=== PATIENT | female | born 1970 | race Caucasian/White ===

== ENCOUNTER 2017-02-03 18:54 | Inpatient (IN) | payer BC ==
[~2017-02-03] VITALS: Ht 157.5 cm; Wt 65.9 kg
--- NOTE | ~2017-02-03 | OP ---
PATIENT NAME: SHAUNNA LOERA MEDICAL RECORD: [id number] :70 LOCATION:D. D.2130 ADMISSION DATE:02/03/17 SURGEON: AILYN STUART M.D. DATE OF OPERATION: 02/06/2017 REFERRING PHYSICIAN: Dr. Nithin Alvarez. PROCEDURES PERFORMED: 1. Selective coronary angiography. 2. Left heart catheterization with ventriculogram. 3. Bypass angiography. 4. Left internal mammary injection. 5. PTCA and stent placed to the right coronary. INDICATION: A 46-year-old who presents with symptoms of accelerating angina, history of bypass grafting in the past. EQUIPMENT USED: Diagnostic 5-Belizean JL4, AR modified catheter, mammary catheter, pigtail catheter. INTERVENTION: A 6-Belizean AR1 guide, BMW guidewire, 3.0 x 18 mm Integrity stent, 3.0 x 22 mm Integrity stent. TECHNIQUE: A 5-Belizean sheath was inserted in retrograde fashion in the right common femoral artery. Next, selective coronary angiography was performed in standard views using 5-Belizean JL4 and Deion right. Left heart catheterization performed using pigtail catheter. Bypass angiography was performed using the AR modified catheter. The internal mammary was selected with internal mammary catheter. CORONARY ANATOMY: 1. Left main: Left main trunk is moderate in caliber. It gives rise to the LAD and circumflex. It has mild irregularities. 2. LAD: This vessel is 100% occluded in the proximal segment. There is a long 80% stenosis before the first diagonal branch. 3. Circumflex: This vessel is 100% occluded in the proximal segment. The continuation of the AV circumflex has a discrete 90% stenosis, but this vessel is about 2 mm in diameter and small in territory. 4. Right coronary artery: This vessel is quite large and dominant. The mid vessel has a ruptured plaque representing a 70% stenosis. The vessel appears ungrafted. 5. Saphenous vein graft to the PDA. This graft is 100% occluded at the origin. 6. Saphenous vein graft to circumflex. This graft is widely patent throughout its course. 7. Left internal mammary artery to LAD. This graft is diffusely diseased in the proximal one-third. However, there appears to be nothing worse than 30%. The anastomosis is free of disease. The distal LAD is of good caliber and has no obstruction. 8. Left ventricle: Left ventricle is normal in size and function. No wall motion abnormalities are noted. Ejection fraction is 60%. DESCRIPTION OF INTERVENTION: A 6-Belizean sheath was inserted in retrograde fashion in the right common femoral artery. Next, 100 units per kilogram of heparin was infused. A 6-Belizean AR1 guide was advanced and engaged in the right OPERATIVE REPORT [id number] SHAUNNA LOERA coronary artery. Next, a BMW guide wire was placed in the distal vessel. A 3.0 x 18 mm Integrity stent was placed across the area in question and deployed at 14 atmospheres. Injection reveals stent to be widely patent. However, distal stent, there appeared to be an edge dissection. At this point, a 3.0 x 22 mm Integrity stent was placed in an overlapping fashion in the existing stent. This stent was deployed at 14 atmospheres as well. Injection revealed both stents to be widely patent with 0% residual stenosis. There is marked improvement in distal flow. At this point, the wire and guide were removed. IMPRESSION: Successful percutaneous transluminal coronary angioplasty and stenting to the right coronary artery with 0% residual stenosis. PLAN: If he continues to have chest discomfort, we would entertain PTCA to the LAD proximal to the diagonal. TRANSINT:[id number] Voice Confirmation ID: [id number] DOCUMENT ID: [id number] AILYN STUART M.D. CC: [id number] DICTATION DATE: 02/06/17812 BOILING HOUSE OILER: 02/06/17 1323 ADM IN [facility] [address] [place] [address]
--- NOTE | ~2017-02-03 | EC ---
PATIENT:SHAUNNA LOERA DATE OF SERVICE: 02/03/17 SEX: F MEDICAL RECORD: [id number] DATE OF : 70 LOCATION:D. D.213 AGE OF PATIENT: 46 ADMISSION DATE: 02/03/17 REFERRING PHYSICIAN: INTERPRETING PHYSICIAN: AILYN STUART M.D. ECHOCARDIOGRAM REPORT ECHO CHARGES 4 ECHO COMPLETE CLINICAL DIAGNOSIS: CHEST PAIN, DYSPNEA HX OF CAD/CABG ECHOCARDIOGRAPHIC MEASUREMENTS (adult normal given) AC root (d.<3.7cm) 3.6 LV Septum d (<1.2 cm> 1.4 Valve Excursion 1.4 LV Septum (systole) 1.8 Left Atria (s.<4.0cm> 4.0 LVPW d(<1.2cm) 1.4 RV (d.<2.3cm) 3.9 LVPW (sytole) 1.9 LV diastole(<5.6CM) 5.7 MV E-F(>70mm/sec) LV systole 3.9 LVOT Diameter 2.2 MV exc.(>10mm) 1.6 Est.ejection fraction (50-75%) Pericardial Effusion N DOPPLER: LVIT A 124 E 106 LA RVSP 24 LVOT 145 AOP1/2T Asc. Ao 172 RVOT 111 RA PA 147 AV Gradient Peak 11.77 AV Mean 6.37 AV Area 2.8 MV Gradient Peak 5.60 MV Mean 2.87 MV Area COMMENTS: Protective Signal Repairer Helper: Mamadou BORREGO Print Traffic Manager:Blas Nguyễn TAPE# PACS DATE OF SERVICE: 02/05/2017 REFERRING PHYSICIAN: Nithin Alvarez MD. INDICATION: Chest pain. DESCRIPTION: Left ventricle demonstrates left ventricular hypertrophy. No wall motion abnormalities are noted. Estimated ejection fraction is 60%. Mitral valve is structurally normal. There is mild regurgitation noted. Left atrium is mildly dilated. The aortic valve is trileaflet. There is no stenosis or ECHOCARDIOGRAM REPORT [id number] SHAUNNA LOEAR regurgitation seen. Right ventricle is mildly dilated. Tricuspid valve is structurally normal. There is mild regurgitation noted. Right atrium is normal size. There is no pericardial effusion seen. IMPRESSION: 1. Left ventricular hypertrophy with preserved ejection fraction of 60%. 2. Mild mitral regurgitation. 3. Mild tricuspid regurgitation. TRANSINT:[id number] Voice Confirmation ID: [id number] DOCUMENT ID: [id number] AILYN STUART M.D. CC: [id number] DICTATION DATE: 02/05/17 184 SCALE TESTER: 02/06/17 0039 ADM IN [place] [id number] [place] [id number]
--- NOTE | ~2017-02-03 | HEMODYNAMI ---
PATIENT:SHAUNNA LOERA MEDICAL RECORD: [id number] : 70 LOCATION:[facility] D.2130 ADMISSION DATE: 02/03/17 Generatedon:02/06/20178:14 Patient name: SHAUNNA LOERA Patient #: [id number] SSN: D OB: 1970 Date of study: 02/06/2017 Page: Of Hemodynamic Procedure Report Patient Data Patient Demographics Procedure consent was obtained First Name: SHAUNNA Gender: Female Last Name: LUZ MARIA : 1970 Middle Initial: L Age: 46 year(s) Patient #: [id number] Race: Unknown Additional ID: [id number] Contact details Address: [address] [place] [address] [address] State: [place] [facility] [place]: [address] Admission Admission Data Admission Date: 02/03/2017 Admission Time: 21:15 Room #: D.2130 Lab Results Lab Result Date: 02/06/2017 Lab Result Time: 0:00 Biochemistry Name Units Result Min Max BUN mg/dl 11 --(-*--)-- 7 18 Creatinine mg/dl 0.8 --(-*--)-- 0.6 1.3 Troponin l ng/ml 0.097 --(----)-* 0 0.06 CBC Name Units Result Min Max Hemoglobin g/dl 12.9 -*(----)-- 13.5 17.5 Procedure Procedure Types Cath Procedure Diagnostic Procedure LHC LHC w/Coronaries w/Grafts PCI Procedure Coronary Stent Initial Miscellaneous Procedures Moderate Sedation up to 45 minutes Procedure Description Procedure Date Procedure Date: 02/06/2017 Procedure Start Time: 7:30 Procedure End Time: 8:14 Procedure Staff Name Function Hans Spring MD Performing Physician Eli Rutherford RN Nurse Randell Madison RT Monitor Jin Jhaveri RT Scrub Chase Bazan RN Nurse Procedure Data Cath Procedure Fluoroscopy Diagnostic fluoroscopy Total fluoroscopy Time: 7.2 time: 7.2 min min Diagnostic fluoroscopy Total fluoroscopy dose: 851 dose: 851 mGy mGy Contrast Material Contrast Material Type Amount (ml) Isovue 300 183 Entry Location Entry Primary Successful Side Size Upsize Upsize Entry Closure Succes sful Closure Location (Fr) 1 (Fr) 2 (Fr) Remarks Device Remarks Femoral Right 5 Fr 6 Fr Exoseal artery Short Estimated blood loss: 10 ml Diagnostic catheters Device Type Used For End Catheter Placement Cordis 5Fr JL 4.0 Procedure Catheter (MP) Diagnostic Infinity 5Fr Procedure AR MOD Catheter Diagnostic Infinity 5Fr Procedure IM catheter Cordis 5Fr Pigtail Procedure Catheter (MP) Procedure Complications No complications Procedure Medications Medication Administration Route Dosage Oxygen NC 2 l/min Heparin Flush Bag added to field 2 bags (1000units/500ml NS) Lidocaine 2% added to field 20 Versed I.V. 1 mg Fentanyl I.V. 50 mcg Versed I.V. 1 mg Fentanyl I.V. 50 mcg Versed I.V. 1 mg Fentanyl I.V. 50 mcg Versed I.V. 1 mg Fentanyl I.V. 50 mcg Heparin Bolus I.V. 6500 units Plavix P.O. 600 mg Hemodynamics Rest HGB: 12.9 (g/dl) Heart Rate: 85 (bpm) Pressure Samples Time Site Value (mmHg) Purpose Heart Use Rate(bpm) 7:35 AO 134/67(90) Snapshot 92 7:41 LV 130/-3,17 Snapshot 93 7:42 AO 122/72(95) Pullback 93 7:42 LV 138/-5,20 Pullback 93 Gradients Valve Time Site 1 Site 2 Mean SEP/DFP Peak To Heart Use (mmHg) (sec/min) Peak Rate (mmHg) (bpm) Aortic 7:42 LV AO 11 23 16 93 138/-5,20 122/72(95) Calculations Valve P-P Mean Valve Index Valve Source Name Gradient Area Flow (cm2) Aortic 16 11 16 11 Snapshots Pre Cath Intra NCS Post Cath Vital Signs Time Heart Resp SPO2 etCO2 [id number] NIBP (mmHg) Rhythm Pain Sedation Rate (ipm) (%) (mmHg) (mmHg) Status Level (bpm) 7:13:21 96 24 97 0 0 155/92(124) NSR 0 (11) 10(A) , No pain 7:17:35 88 16 99 0 0 150/91(116) NSR 0 (11) 10(A) , No pain 7:21:49 87 18 100 0 0 146/90(127) NSR 0 (11) 10(A) , No pain 7:26:03 82 19 99 0 0 140/84(113) NSR 0 (11) 10(A) , No pain 7:30:17 84 18 99 0 0 134/83(110) NSR 0 (11) 10(A) , No pain 7:34:26 85 16 95 0 0 125/83(102) NSR 0 (11) 9(A) , No pain 7:38:34 90 16 96 0 0 125/81(102) NSR 0 (11) 9(A) , No pain 7:42:42 95 16 95 0 0 124/83(105) NSR 0 (11) 9(A) , No pain 7:46:50 93 19 95 0 0 123/79(103) NSR 0 (11) 9(A) , No pain 7:50:58 95 23 97 0 0 128/80(95) NSR 0 (11) 9(A) , No pain 7:55:06 93 19 96 0 0 124/73(101) NSR 0 (11) 9(A) , No pain 7:59:16 96 16 95 0 0 127/74(99) NSR 0 (11) 9(A) , No pain 8:03:23 93 16 96 0 0 128/78(98) NSR 0 (11) 9(A) , No pain 8:07:31 98 16 97 0 0 135/95(110) NSR 0 (11) 10(A) , No pain 8:11:39 92 16 98 0 0 148/96(120) NSR 0 (11) 10(A) , No pain Medications Time Medication Route Dose Verified Delivered Reason Notes Effectiveness by by 7:15:06 Oxygen NC 2 Hans Eli Per physician l/min Tacho Rutherford RN 7:15:13 Heparin Flush added 2 Hans Hans used for Bag to bags Tacho Spring MD procedure (1000units/500ml field NS) 7:15:20 Lidocaine 2% added 20ml Hans Hans used for to vial Tacho Spring MD procedure field 7:22:30 Versed I.V. 1 mg Hans Eli for sedation Tacho Rutherford RN 7:22:41 Fentanyl I.V. 50 Hans Eli for sedation mcg Tacho Rutherford RN 7:25:13 Versed I.V. 1 mg Hans Eli for sedation Tacho Rutherford RN 7:25:22 Fentanyl I.V. 50 Hans Eli for sedation mcg Tacho Rutherford RN 7:28:10 Versed I.V. 1 mg Hans Eli for sedation Tacho Rutherford RN 7:28:15 Fentanyl I.V. 50 Hans Eli for sedation mcg Tacho Rutherford RN 7:30:25 Versed I.V. 1 mg Hans Eli for sedation Tacho Rutherford RN 7:30:31 Fentanyl I.V. 50 Hans Eli for sedation mcg Tacho Rutherford RN 7:48:04 Heparin Bolus I.V. 6500 Hans Eli for dose units Tacho Rutherford RN anticoagulation verified with dr spring 8:09:56 Plavix P.O. 600 Hans Eli for mg Tacho Rutherford RN antiplatelet therapy Procedure Log Time Note 6:40:01 Jin Jhaveri RT(R) sent for patient. Start room use. 7:02:02 Time tracking: Regular hours 7:02:06 Plan of Care:Hemodynamics will remain stable., Cardiac rhythm will remain stable., Comfort level will be maintained., Respiratory function will remain adequate., Patient/ family verbilizes understanding of procedure., Procedure tolerated without complication., Recovers from procedure without complications.. 7:02:37 Patient received from PCU to CCL 1 Alert and oriented. Tansferred to table in Supine position. 7:02:38 Warm blankets applied, and charli hugger turned on for patient comfort. 7:02:39 Correct patient and procedure confirmed by team. 7:02:40 Signed procedure consent form obtained from patient. 7:02:41 ECG and BP/O2 sat monitors applied to patient. 7:06:21 H&P Date Dictated: 02/06/2017 Within 30 days and on chart.. 7:06:22 Pre-procedure instructions explained to patient. 7:06:23 Pre-op teaching completed and patient verbalized understanding. 7:06:27 Family in patients room. 7:06:29 Patient NPO since Midnight. 7:06:31 Is the patient allergic to Iodine/contrast media? No. 7:06:56 IV right forearm D/C'd due to infiltration. 7::59 IV started by Chase Bazan RN inleft forearm with a 20 gauge IV catheter with 0.9% NaCl at KVO. 7:08:03 Lab results completed and on chart. 7:08:59 20g IV Catheter opened to sterile field. 7::46 Lab Result : BUN 11 mg/dl 7::46 Lab Result : Troponin l 0.097 ng/ml 7::46 Lab Result : Creatinine 0.8 mg/dl 7::46 Lab Result : Hemoglobin 12.9 g/dl 7:12:19 Vital chart was started 7:15:06 Oxygen 2 l/min NC was administered by Eli Rutherford RN; Per physician; 7:15:13 Heparin Flush Bag (1000units/500ml NS) 2 bags added to field was administered by Hans Spring MD; used for procedure; 7:15:20 Lidocaine 2% 20ml vial added to field was administered by Hans Spring MD; used for procedure; 7:17:35 Is patient on blood thinner?No 7:17:37 Patient diabetic? No. 7:17:39 Patient not . Patient has had tubal. 7:21:34 Baseline sample Acquired. 7:21:40 Rhythm: sinus rhythm 7:21:42 Full Disclosure recording started 7:21:47 Previous problem with sedation/anesthesia? No ? 7:21:49 Snore? Yes 7:21:50 Sleep apnea? No 7:21:51 Deviated septum? No 7:21:52 Opens mouth fully? Yes 7:21:52 Sticks out tongue? Yes 7:21:54 Airway obstruction? No ? 7:21:57 Dentures? No ? 7:22:01 Pre procedure: right dorsailis pedis pulse 1+ Palpable, but thready & weak; easily obliterated 7:22:04 Patient pain scale 0/10 ?. 7:22:15 Right groin area was prepped with chlora-prep and draped in sterile fashion 7:22:16 Alarms reviewed by R. N. 7:22:16 Sharps counted by scrub and verified by R.NDarby 7::18 --------ALL STOP TIME OUT------ 7::19 Final Timeout: patient, procedure, and site verified with staff and physician. All members of the team are in agreement. 7:22:23 Right groin site verified by team. 7::27 Physical assessment completed. ASA score P 2 - A patient with mild systemic disease as per Hans Spring MD. 7::30 Versed 1 mg I.V. was administered by Eli Rutherford RN; for sedation; 7::31 Sedation plan: IV Moderate Sedation Versed, Fentanyl 7::41 Fentanyl 50 mcg I.V. was administered by Eli Rutherford RN; for sedation; 7:25:13 Versed 1 mg I.V. was administered by Eli Rutherford RN; for sedation; 7:25:22 Fentanyl 50 mcg I.V. was administered by Eli Rutherford RN; for sedation; 7:28:10 Versed 1 mg I.V. was administered by Eli Rutherford RN; for sedation; 7:28:15 Fentanyl 50 mcg I.V. was administered by Eli Rutherford RN; for sedation; 7:29:11 Use device set Femoral Dx 7:29:12 Tegaderm 4 x 4 opened to sterile field. 7:29:13 Acist Hand Control opened to sterile field. 7:29:14 Acist Manifold opened to sterile field. 7:29:15 Acist Syringe opened to sterile field. 7:29:16 Bag Decanter opened to sterile field. 7:29:16 Medline Cath Pack opened to sterile field. 7:29:16 Terumo 5Fr Gaston Sheath opened to sterile field. 7:29:17 St Arjun 260cm J .035 wire opened to sterile field. 7:29:18 Diagnostic Infinity 5Fr Multipack catheter opened to sterile field. 7:29:30 Zero performed for pressure channel P1 7:29:42 Procedure started. 7:30:25 Versed 1 mg I.V. was administered by Eli Rutherford RN; for sedation; 7::31 Fentanyl 50 mcg I.V. was administered by Eli Rutherford RN; for sedation; 7:30:35 Local anesthetic to right femoral artery with Lidocaine 2% by Hans Spring MD.INITIAL ACCESS ONLY 7:32:13 A 5 Fr sheath was inserted into the Right Femoral artery 7:33:01 A Cordis 5Fr JL 4.0 Catheter (MP) was advanced over the wire and used for Procedure. 7:33:18 Baseline sample Acquired. 7:33:49 LCA angiography performed. 7:35:08 Catheter exchanged over wire. 7:35:28 A Diagnostic Infinity 5Fr AR MOD Catheter was advanced over the wire and used for Procedure. 7:35:45 RCA angiography performed. 7:36:19 SVG to Circ angiography performed. 7:37:02 SVG to RCA occluded. 7:37:47 Catheter exchanged over wire. 7:37:53 A Diagnostic Infinity 5Fr IM catheter was advanced over the wire and used for Procedure. 7:39:51 MAZARIEGOS to LAD angiography performed. 7:40:12 Catheter exchanged over wire. 7:41:14 A Cordis 5Fr Pigtail Catheter (MP) was advanced over the wire and used for Procedure. 7:41:43 LV angiography performed. 7:41:49 LV gram done using GRIFFITH 7:41:58 EF : 60 % 7:42:05 LV hemodynamics recorded. 7:42:11 Injector settings: Ml/sec: 10, Volume: 20, 7:45:15 Catheter exchanged over wire. 7:45:40 Sensity Systems BasixCompak Inflation Kit opened to sterile field. 7:45:40 Magaña BMW [place] 2 J-tip 300cm 0.014 guide wir opened to sterile field. 7:45:41 Terumo 6Fr Gaston Sheath opened to sterile field. 7:45:41 High Pressure Extension Tubing (Tacho) opened to sterile field. 7:45:41 Medtronic Launcher 6Fr AR 1.0 guide catheter opened to sterile field. 7:45:55 Sheath upsized to a 6 Fr Short. 7:46:28 ACC PCI Site: pRCA has 70% stenosis. 7:46:31 ACC Pre-intervention ADOLFO Flow is 3. 7:46:38 6 Fr AR 1 guide catheter was inserted over the wire 7:48:04 Heparin Bolus 6500 units I.V. was administered by Eli Rutherford RN; for anticoagulation; dose verified with dr spring 7:48:29 BMW wire advanced. 7:52:54 Wire advanced across lesion. 7:55:06 Inflation Number: 1 A Medtronic Integrity 3.0 X 18 stent was prepped and advanced across the Prox RCA. The stent was deployed at 14 SHELLEY for 0:10 (min:sec). 7:59:44 Stent catheter was removed intact over wire. 8:02:12 Inflation Number: 1 A Medtronic Integrity 3.0 X 22 stent was prepped and advanced across the Mid RCA. The stent was deployed at 14 SHELLEY for 0:10 (min:sec). 8:03:35 ACC Post-intervention ADOLFO Flow is 3. 8:03:37 Stent catheter was removed intact over wire. 8:03:38 Wire removed. 8:03:39 Guide catheter removed. 8:03:46 Cordis 6Fr Exoseal opened to sterile field. 8:04:28 Sheath removed intact; hemostasis achieved with Exoseal to the Right Femoral artery. 8:04:41 Procedure ended.(Physican Out) 8:05:27 Fluoroscopy time 07.20 minutes. 8:05:30 Fluoroscopy dose: 851 mGy 8:05:30 Flurop Dose total: 851 8:06:20 Contrast amount:Isovue 300 183ml. 8:06:22 Sharps counted by scrub and verified by R.N. 8:06:23 Insertion/operative site no bleeding no hematoma. 8:06:26 Post-op/insertion site Right Femoral artery dressed using a 4 x 4 and Tegaderm. 8:06:27 Post Procedure Pulses reassessed and unchanged 8:06:31 Post-procedure physical assessment completed. ASA score P 2 - A patient with mild systemic disease as per Hans Spring MD. 8:06:33 Post procedure rhythm: unchanged. 8:06:36 Estimated blood loss: 10 ml 8:06:37 Post procedure instruction explained to patient.Patient verbalizes understanding. 8:06:38 Patient needs reinforcement of post procedure teaching. 8:06:55 Procedure type changed to Cath procedure, Diagnostic procedure, LHC, LHC w/Coronaries w/Grafts, PCI procedure, Coronary Stent Initial, Miscellaneous Procedures, Moderate Sedation up to 45 minutes 8:06:59 Procedure Complication : No complications 8:09:56 Plavix 600 mg P.O. was administered by Eli Rutherfodr RN; for antiplatelet therapy; 8:13:50 Procedure and supply charges have been captured, reviewed, submitted and are correct. 8:13:51 Vital chart was stopped 8:13:53 See physician's report for complete and final results. 8:13:55 Report given to PCU. 8:13:59 Patient transfered to PCU with Bed. 8:14:01 Procedure ended. 8:14:01 Full Disclosure recording stopped 8:14:07 End room use (Document Last) Intervention Summary Intervention Notes Time ActionType Lesion and Equipment Action# Pressure Duration Attributes Used 7:55:06 Place stent Prox RCA Medtronic 1 14 00:10 Integrity 3.0 X 18 stent 8:02:12 Place stent Mid RCA Medtronic 1 14 00:10 Integrity 3.0 X 22 stent Device Usage Item Name Manufacture Quantity Catalog Hospital Part Current Minimal Lot# / Number Charge Number Stock Stock Serial# Code 20g IV B. Simons 1 [id number] 828448 095548 460960 5 Catheter Tegaderm 4 3M 1 1626W 545023 117541 565383 5 x 4 Acist Hand Acist 1 12844 642972 275824 690092 5 Control Medical Systems Inc Acist Acist 1 38805 755347 483419 262071 5 Manifold Medical Systems Inc Acist Acist 1 39069 677112 225629 754983 20 Syringe Medical Systems Inc Bag Microtek 1 2002S 838826 67159 493304 5 Decanter Medical Inc. Medline Cardinal 1 [id number] 944286 73857 027071 5 Cath Pack Health Terumo 5Fr Terumo 1 [id number] 534596 594801 681376 [address] St Arjun 1 [id number] 898940 376915 323658 30 260cm J .035 wire Diagnostic Cardinal 1 [id number] 745552 06353 362349 30 Vapore 5Fr Multipack catheter Cordis 5Fr Cardinal 1 448185 5 JL 4.0 Health Catheter (MP) Diagnostic Cardinal 1 [id number] 812315 609267 428770 15 Vapore 5Fr AR MOD Catheter Diagnostic Cardinal 1 [id number] 654100 519995 859169 5 Vapore 5Fr IM catheter Cordis 5Fr Cardinal 1 744080 5 Pigtail Health Catheter (MP) Merit Merit 1 VA6469 627854 335234 342982 15 BasixCompak Medical Inflation Kit Mag[place] BMW [place] 1 [id number] 160770 219185 532425 5 [place] 2 Vascular J-tip 300cm 0.014 guide wir Terumo 6Fr Terumo 1 [id number] 051139 908474 162860 40 Gaston Sheath High Merit 1 [id number] 676460 72922 818892 10 Pressure Medical Extension Tubing (Spring) Medtronic Medtronic 1 [id number] 750026 60503 222802 1 Launcher 6Fr AR 1.0 guide catheter Medtronic Medtronic 1 [id number] 101237 638833 6 [id number] Integrity 3.0 X 18 stent Medtronic Medtronic 1 [id number] 273602 040022 6 [id number] Integrity 3.0 X 22 stent Cordis 6Fr Cardinal 1 EX600 723624 971384 298375 10 [facility] Health Signature Audit [place] Stage Time Signature Unsigned Intra-Procedure 02/06/2017 Randell Madison 8:14:21 AM RT(R) Signatures Monitor : Randell Madison RT Signature : Date : Time : [place] [id number] [place] [address]
[~2017-02-03 18:54] MED LIST: BAYER CHEWABLE81 MG PO; LIPITOR20 MG PO; LOPRESSOR25 MG PO
[2017-02-03 20:00] LABS: BASOPHILS 0.3 % (0-2); EOSINOPHILS 0.3 % (0-7); HEMATOCRIT 44.7 % (36.0-48.0); HEMOGLOBIN 14.9 g/dL (12-16); IMMATURE GRANULOCYTES 0.2 % (0-5); LYMPHOCYTES 25.8 % (15-50); MCH 31.4 pg (26.0-34.0); MCHC 33.3 g/dL (31.0-37.0); MCV 94.3 fL (80.0-100.0); MEAN PLATELET VOLUME 10.8 fL (7.4-10.4); MONOCYTES 7.9 % (2-11); NEUTROPHILS 65.5 % (40-80); RBC 4.74 10x6/uL (4.00-5.40); RDW 13.1 % (11.5-14.5); WBC 13.6 10x3/uL (4.8-10.8)
[2017-02-03 20:01] LABS: PLATELET COUNT 306 10x3/uL (130-400)
[2017-02-03 20:14] LABS: ALBUMIN 3.3 g/dL (3.4-5.0); ALKALINE PHOSPHATASE 29 U/L (46-116); ALT (SGPT) 10 U/L (10-68); BILIRUBIN - TOTAL 0.56 mg/dL (0.2-1.3); CALC OSMOLALITY 279 mosm/kg (275-300); CALCIUM 8.8 mg/dL (8.5-10.1); CARBON DIOXIDE 28.4 mmol/L (21.0-32.0); CHLORIDE - SERUM 104 mmol/L (98-107); GLUCOSE 109 mg/dL (74-106); POTASSIUM - SERUM 3.5 mmol/L (3.5-5.1); PROTEIN - SERUM 7.5 g/dL (6.4-8.2); SODIUM 141 mmol/L (136-145); UREA NITROGEN 7 mg/dL (7-18); eGFR NON AFRICAN AMERICAN 63 mL/min (90-120)
[2017-02-03 20:31] LABS: CKMB 0.3 U/L (0.0-3.6); CREATINE KINASE 43 UL (21-215)
[2017-02-03 20:32] LABS: TROPONIN-I < 0.017 ng/mL (0.000-0.060)
--- NOTE | 2017-02-03 21:50 | NUR ---
REPORT RECEIVED FROM CUONG BORRERO.
--- NOTE | 2017-02-03 22:05 | NUR ---
ARRIVED TO FLOOR VIA WHEELCHAIR, ACCOMPANIED BY HOSPITAL STAFF. ORIENTED TO UNIT. CALL LIGHT IN REACH. WILL CONTINUE TO MONITOR. SEE NURSE ASSESSMENT.
[2017-02-03 22:39] VITALS: BP 152/101; Ht 157.5 cm; Wt 65.9 kg
--- NOTE | 2017-02-04 01:06 | NUR ---
LEVAQUIN AND NS BOLUS FINISHED, SALINE LOCKED LEFT HAND. NO NEEDS AT THIS TIME. WILL CONTINUE TO MONITOR. CALL LIGHT IN REACH.
[2017-02-04 01:07] VITALS: BP 145/92
[2017-02-04 05:26] VITALS: BP 140/88
--- NOTE | 2017-02-04 06:48 | NUR ---
NO CHANGES FROM PREVIOUS ASSESSMENT, CALL LIGHT IN REACH.
[2017-02-04 07:39] LABS: BASOPHILS 0.2 % (0-2); EOSINOPHILS 0.8 % (0-7); HEMATOCRIT 40.5 % (36.0-48.0); HEMOGLOBIN 13.5 g/dL (12-16); IMMATURE GRANULOCYTES 0.2 % (0-5); LYMPHOCYTES 26.5 % (15-50); MCH 30.9 pg (26.0-34.0); MCHC 33.3 g/dL (31.0-37.0); MCV 92.7 fL (80.0-100.0); MEAN PLATELET VOLUME 10.4 fL (7.4-10.4); MONOCYTES 9.8 % (2-11); NEUTROPHILS 62.5 % (40-80); PLATELET COUNT 283 10x3/uL (130-400); RBC 4.37 10x6/uL (4.00-5.40); RDW 12.7 % (11.5-14.5)
--- NOTE | 2017-02-04 07:41 | NUR ---
AM ROUNDS - PT UP IN ROOM. DENIES NEEDS AT THIS TIME. BREATHING UNLABORED AND EVEN. PT LEFT ROOM TO WALK. WILL CTM.
[2017-02-04 07:43] LABS: WBC 9.6 10x3/uL (4.8-10.8)
[2017-02-04 08:00] VITALS: BP 133/74
[2017-02-04 08:09] LABS: ALBUMIN 2.7 g/dL (3.4-5.0); ALKALINE PHOSPHATASE 23 U/L (46-116); ALT (SGPT) 12 U/L (10-68); CALC OSMOLALITY 273 mosm/kg (275-300); CALCIUM 8.2 mg/dL (8.5-10.1); CHLORIDE - SERUM 105 mmol/L (98-107); CREATINE KINASE 39 UL (21-215); CREATININE - SERUM 0.8 mg/dL (0.6-1.3); GLUCOSE 99 mg/dL (74-106); POTASSIUM - SERUM 3.7 mmol/L (3.5-5.1); PROTEIN - SERUM 5.8 g/dL (6.4-8.2); SODIUM 138 mmol/L (136-145); TROPONIN-I < 0.017 ng/mL (0.000-0.060); UREA NITROGEN 6 mg/dL (7-18); eGFR NON AFRICAN AMERICAN 82 mL/min (90-120)
[2017-02-04 12:00] VITALS: BP 131/75
--- NOTE | 2017-02-04 12:11 | NUR ---
PT REPORTS PAIN AT 02/25. SPOKE TO [employer] ABOUT CHANGING PAIN MEDICATION. WILL CTM.
--- NOTE | 2017-02-04 12:28 | NUR ---
PT WAS OFFERED SCDS FOR DVT PROPHYLACTICS HOWEVER PT REFUSED TO WEAR THEM R/T BEING AMBULATORY. PT OFTEN LEAVES ROOM TO AMBULATE AROUND NURSES STATION. NO FURTHER NEEDS.
--- NOTE | 2017-02-04 15:01 | NUR ---
PT RESTING QUIETLY. REPORTS PAIN IS STILL AT 7/10. TYLENOL AND ADVIL GIVEN. WILL REASSESS AND CTM.
[2017-02-04 16:00] VITALS: BP 139/79
--- NOTE | 2017-02-04 18:21 | NUR ---
PT LEFT ROOM TO WALK WITH FAMILY MEMBER. WILL GIVE REPORT ON PT CONDITION.
[2017-02-04 19:00] VITALS: BP 155/91
--- NOTE | 2017-02-04 19:55 | NUR ---
RESUMED CARE OF PT, LYING IN BED RESPIRATIONS EVEN AND UNLABORED ON ROOM AIR. 86 SR ON TELEMETRY. RIGHT HAND SALINE LOCKED. REQUESTS PAIN MEDICATION. CALL LIGHT IN REACH. WILL CONTINUE TO MONITOR. SEE NURSE ASSESSMENT.
[2017-02-05] VITALS: BP 141/74
[2017-02-05 04:00] VITALS: BP 147/85
--- NOTE | 2017-02-05 06:42 | NUR ---
NO CHANGES FROM PREVIOUS ASSESSMENT, CALL LIGHT IN REACH. WILL CONTINUE WITH PLAN OF CARE.
[2017-02-05 06:52] LABS: BASOPHILS 0.1 % (0-2); EOSINOPHILS 0 % (0-7); HEMATOCRIT 40.7 % (36.0-48.0); HEMOGLOBIN 13.5 g/dL (12-16); IMMATURE GRANULOCYTES 0.2 % (0-5); LYMPHOCYTES 8.8 % (15-50); MCH 30.8 pg (26.0-34.0); MCHC 33.2 g/dL (31.0-37.0); MCV 92.7 fL (80.0-100.0); MONOCYTES 1.6 % (2-11); NEUTROPHILS 89.3 % (40-80); PLATELET COUNT 303 10x3/uL (130-400); RBC 4.39 10x6/uL (4.00-5.40); RDW 12.6 % (11.5-14.5); WBC 9.4 10x3/uL (4.8-10.8)
[2017-02-05 07:21] LABS: CALCIUM 8.9 mg/dL (8.5-10.1); CARBON DIOXIDE 22.4 mmol/L (21.0-32.0); CHLORIDE - SERUM 104 mmol/L (98-107); CREATININE - SERUM 0.8 mg/dL (0.6-1.3); MAGNESIUM - SERUM 1.7 mg/dL (1.8-2.4); PHOSPHOROUS 2.8 mg/dL (2.5-4.9); POTASSIUM - SERUM 3.8 mmol/L (3.5-5.1); SODIUM 138 mmol/L (136-145); eGFR NON AFRICAN AMERICAN 82 mL/min (90-120)
[2017-02-05 07:24] LABS: CALC OSMOLALITY 277 mosm/kg (275-300); GLUCOSE 154 mg/dL (74-106); UREA NITROGEN 11 mg/dL (7-18)
--- NOTE | 2017-02-05 07:25 | NUR ---
AM ROUNDS - PT RESTING QUIETLY, REPORTS DECREASED LEVEL OF PAIN FROM YESTERDAY R/T NEW PAIN MEDS. DENIES NEEDS AT THIS TIME. BREATHING EQUAL AND UNLABORED. SIDE RAILS UP X2, BED IN LOWEST POSITION, WILL CTM.
--- NOTE | 2017-02-05 08:27 | NUR ---
PT BACK FROM CT HUNGRY SO I ORDERED A BREAKFAST TRAY. PT DENIES ANY FURTHER NEEDS AT THIS TIME. WILL CTM.
--- NOTE | 2017-02-05 09:30 | NUR ---
IV INFILTRATED AFTER RETURING FROM CT. IV CATHETER REMOVED WITH CATHETER TIP INTACT. PT REQUESTED TO NOT HAVE ANOTHER IV PUT IN AND WOULD RATHER HAVE HER MEDS VIA IM INJECTION. WILL CTM.
[2017-02-05 12:00] VITALS: BP 170/88
[2017-02-05 13:14] LABS: CKMB 0.5 U/L (0.0-3.6); CREATINE KINASE 44 UL (21-215)
--- NOTE | 2017-02-05 13:15 | NUR ---
NEW 20 GUAGE IV STARTED TO RIGHT FOREARM, X1 STICK. PATENT AND SALINE LOCKED.
[2017-02-05 13:20] LABS: TROPONIN-I < 0.017 ng/mL (0.000-0.060)
[2017-02-05 16:00] VITALS: BP 149/80
--- NOTE | 2017-02-05 16:56 | NUR ---
PT REPORTS STABBING LEFT SIDED CHEST PAIN THAT RADIATES DOWN TO LEFT ARM. DR. BEARD MAKING ROUNDS, GAVE VERBAL ORDER FOR NITRO SUBLINGUL TABLETS AND TO CONSULT CARDIOLOGY. ENZYMES ARE STILL NEGATIVE AND EKG SHOWING SINUS TACHYCARDIA. WILL BEGIN NITRO AND CTM.
--- NOTE | 2017-02-05 17:19 | NUR ---
AT BEDSIDE FOR CONSULT. WILL CONTINUE TO CYCLE ENZYMES AND EKG AND ADD NITRO PATCH AND SEE IF PAIN SUBSIDES AND IF NO RELIEF MAY NEED TO GO TO CREW DIRECTOR. PT VERBALIZED UNDERSTANDING. WILL CTM.
--- NOTE | 2017-02-05 17:43 | NUR ---
AFTER 2ND NITRO TAB, PT REPORTS 5/10 PAIN IN CHEST AND LEFT ARM. DENIED A THIRD TAB AND STATES "I WILL WAIT TILL I GET MY NITRO PATCH." WILL CTM.
[2017-02-05 18:06] LABS: CKMB 0.8 U/L (0.0-3.6); CREATINE KINASE 53 UL (21-215); TROPONIN-I 0.052 ng/mL (0.000-0.060)
--- NOTE | 2017-02-05 19:25 | NUR ---
ALERT/AWAKE HOB 45 DEGREES TALKING ON PHONE. ORIENTED X 4. IV IN R FA INTACT SL. TELEMETRY SHOWS 92 S. DENIES ANY NEEDS OR DISCOMFORTS. BED IS LOW WITH SR UP X2. HAS CALL LIGHT IN REACH.
[2017-02-05] MEDS ORDERED: GABAPENTIN100 MG PO (19:36)
[2017-02-05 19:41] VITALS: BP 149/78
--- NOTE | 2017-02-05 22:00 | NUR ---
ADMIN NORCO PO FOR C/O HEADACHE AND BACK PAIN LEVEL 8 ON NUMBER SCALE. AMBULATED TO BATHROOM TO VOID. FLUSHED IV.
[2017-02-05 23:26] VITALS: BP 131/72
[2017-02-06 00:01] LABS: CREATINE KINASE 46 UL (21-215)
[2017-02-06 00:02] LABS: TROPONIN-I 0.097 ng/mL (0.000-0.060)
--- NOTE | 2017-02-06 01:15 | NUR ---
DID EKG PER ORDER. SIGNED CONSENT FOR HEART CATH TODAY. DENIES ANY NEEDS AT THIS TIME.
[2017-02-06 03:24] VITALS: BP 115/67
[2017-02-06 06:49] LABS: HEMATOCRIT 39.5 % (36.0-48.0); HEMOGLOBIN 12.9 g/dL (12-16); MCH 30.4 pg (26.0-34.0); MCHC 32.7 g/dL (31.0-37.0); MCV 92.9 fL (80.0-100.0); MEAN PLATELET VOLUME 10.6 fL (7.4-10.4); PLATELET COUNT 387 10x3/uL (130-400); RBC 4.25 10x6/uL (4.00-5.40); WBC 27.2 10x3/uL (4.8-10.8)
--- NOTE | 2017-02-06 06:53 | NUR ---
PREOP PER ORDER.
[2017-02-06 07:05] LABS: CALC OSMOLALITY 272 mosm/kg (275-300); CALCIUM 8.6 mg/dL (8.5-10.1); CARBON DIOXIDE 23.8 mmol/L (21.0-32.0); CHLORIDE - SERUM 104 mmol/L (98-107); CREATININE - SERUM 0.8 mg/dL (0.6-1.3); GLUCOSE 122 mg/dL (74-106); MAGNESIUM - SERUM 1.9 mg/dL (1.8-2.4); POTASSIUM - SERUM 3.9 mmol/L (3.5-5.1); SODIUM 136 mmol/L (136-145); UREA NITROGEN 12 mg/dL (7-18); eGFR NON AFRICAN AMERICAN 82 mL/min (90-120)
[2017-02-06 07:43] LABS: ANISOCYTOSIS OCC; LYMPHOCYTES 7 % (15-50); MONOCYTES 3 % (2-11); NEUTROPHILS 88 % (40-80); PLATELET ESTIMATE NORMAL
[2017-02-06 08:00] VITALS: BP 141/84
--- NOTE | 2017-02-06 08:42 | NUR ---
RETURNED FROM EGG TESTER. SUMA CARRASCO CLEAN/DRY/INTACT. A&O. NO COMPLAINTS OF PAIN OR ANGINA AT THIS TIME
[2017-02-06 12:00] VITALS: BP 149/64
--- NOTE | 2017-02-06 15:57 | NUR ---
RESTS IN BED WITH CALL LIGHT IN REACH. ELMER NEEDS AT THIS TIME. WILL MONITOR.
[2017-02-06 20:04] VITALS: BP 151/77
[2017-02-06 23:53] VITALS: BP 136/75
[2017-02-07 03:47] VITALS: BP 173/91
[2017-02-07 06:47] LABS: BASOPHILS 0 % (0-2); EOSINOPHILS 0 % (0-7); HEMATOCRIT 38.5 % (36.0-48.0); HEMOGLOBIN 12.8 g/dL (12-16); IMMATURE GRANULOCYTES 0.4 % (0-5); LYMPHOCYTES 6.5 % (15-50); MCHC 33.2 g/dL (31.0-37.0); MCV 93.2 fL (80.0-100.0); MEAN PLATELET VOLUME 10.2 fL (7.4-10.4); MONOCYTES 3.1 % (2-11); PLATELET COUNT 390 10x3/uL (130-400); RBC 4.13 10x6/uL (4.00-5.40); RDW 13.1 % (11.5-14.5); WBC 26.1 10x3/uL (4.8-10.8)
[2017-02-07 07:01] LABS: ANION GAP 10.9 mmol/L (8-16); CARBON DIOXIDE 28.1 mmol/L (21.0-32.0); CREATININE - SERUM 0.9 mg/dL (0.6-1.3)
--- NOTE | 2017-02-07 07:24 | NUR ---
AM ROUNDS- PT IN BED, RECEIVING UPDRAFT THIS TIME. PT DENIES ANY NEEDS AT THIS TIME. BED LOW AND LOCKED, BEDSIDE RAILS X2, CALL LIGHT IN REACH, NAD NOTED, WILL CONTINUE TO MONITOR.
[2017-02-07 08:04] VITALS: BP 155/87
--- NOTE | 2017-02-07 09:32 | NUR ---
ADMINISTERED AM MEDS, AND FIORECET FOR PAIN LEVEL OF 6/10. PT DENIES ANY NEEDS AT THIS TIME. CALL LIGHT IN REACH, NAD NOTED, WILL CONTINUE TO MONITOR.
--- NOTE | 2017-02-07 11:17 | NUR ---
ADMINISTERED NORCO 5MG FOR PAIN LEVEL OF 6/10. ALSO REMOVED NITRO PATCH SINCE PT KEEPS C/O HEADACHE. PT IN BED, DENIES ANY OTHER NEEDS AT THIS TIME. CALL LIGHT IN REACH, NAD NOTED, WILL CONTINUE TO MONITOR.
[2017-02-07 11:44] VITALS: BP 160/85
[2017-02-07] MEDS ORDERED: PLAVIX75 MG PO (13:57)
[2017-02-07] MEDS ORDERED: NICODERM C1 PATCH .1 TRANSDERM (13:57)
--- NOTE | 2017-02-07 14:50 | NUR ---
Patient Name: SHAUNNA LOERA Admission Status: ER Accout number: [id number] Admission Date: 02-03-2017 : 1970 Admission Diagnosis:CHEST PAIN, UNSPECIFIED Attending: CONY Current LOS: 4 Anticipated DC Date: 02-07-2017 Planned Disposition: Home Primary Insurance: [facility] Discharge Planning Comments: * Is the patient Alert and Oriented? Yes 0 * How many steps to enter\exit or inside your home? NONE 0 * PCP RODNEY LOPEZ 0 * Pharmacy [facility], Maintenance Assistant [place] 0 * Preadmission Environment Home with Family 0 * ADLs Independent 0 * Equipment None 0 * Other Equipment NO MEDICAL EQUIPMENT PROVIDER PREFERENCE 0 * List name and contact numbers for known caregivers / representatives who currently or will assist patient after discharge: PRIYANKA TOWNSEND, FRIEND, 0 * Community resources currently utilized None 0 * Please name any agencies selected above. NONE 0 * Additional services required to return to the preadmission environment? No 0 * Can the patient safely return to the preadmission environment? Yes 0 * Has this patient been hospitalized within the prior 30 days at any hospital? No 0 CM MET WITH PT IN ROOM TO DISCUSS DISCHARGE PLANNING AND NEEDS. PT REPORTS LIVING AT HOME INDEPENDENTLY WITH SIGNIFICANT OTHER. PT HAS NO MEDICAL EQUIPMENT AND NO OUTSIDE SERVICES ASSISTING IN THE HOME. CM DISCUSSED AVAILABILITY OF HOME HEALTH, REHAB SERVICES AND MEDICAL EQUIPMENT. PT DENIES DISCHARGE NEEDS, REPORTS HER FRIEND IS HERE TO PICK HER UP FOR DISCHARGE HOME NOW. PT ASKED FOR WORK EXCUSE, PROVIDED BY CM. PT ASKED FOR RETURN TO WORK DOCUMENTATION AND ASKED THAT THE DOCTOR FILL OUT HER PAPERWORK FOR EMPLOYER; CM DIRECTED PT TO SPEAK TO THE DOCTOR AND CM NOTIFIED DR. DU AND RENA MEZA OF PT'S REQUEST. Retaining Room Cutter: Benito Correa
--- NOTE | 2017-02-07 16:25 | NUR ---
PROVIDED VERBAL AND WRITTEN DISCHARGE TEACHING TO PT. PT VERBALIZED UNDERSTANDING REGARDING TEACHING. D/C LT FOREARM IV, TIP INTACT. PT LEFT UNIT AMBULATING, ACCOMPANIED BY FAMILY, NAD NOTED.
== END 2017-02-07 16:25 | disposition home or self-care (01) | DRG 249 ==
LOC: D.ER 18:54 → D.M2 21:15
PROVIDERS: Emergency Medicine; Family Medicine; ADMIT Family Medicine
DX: I25.10 Atherosclerotic heart disease of native coronary artery without angina pectoris (principal); J90 Pleural effusion, not elsewhere classified; J98.11 Atelectasis; F17.203 Nicotine dependence unspecified, with withdrawal; J44.9 Chronic obstructive pulmonary disease, unspecified; I10 Essential (primary) hypertension; E78.5 Hyperlipidemia, unspecified; K21.9 Gastro-esophageal reflux disease without esophagitis; J30.9 Allergic rhinitis, unspecified